=== PATIENT | male | born 1945 | race Caucasian/White ===

== ENCOUNTER 2017-12-06 17:11 | Inpatient (IN) | payer MEDICARE ==
[~2017-12-06] VITALS: Ht 165.1 cm; Wt 71.0 kg
[2017-12-06 18:30] LABS: BASOPHILS # (AUTO) 0.02 x10^3/uL (0-0.1); BASOPHILS % (AUTO) 0 % (0-1); EOSINOPHILS # (AUTO) 0.09 x10^3/uL (0-0.4); EOSINOPHILS % (AUTO) 1 % (1-7); LYMPHOCYTES # (AUTO) 0.54 x10^3/uL (1-3.4); LYMPHOCYTES % (AUTO) 5 % (22-44); MD NO; MEAN CORPUSCULAR HGB CONC 33.1 g/dL (33.2-36.2); MEAN CORPUSCULAR VOLUME 90.6 fL (81-97); MEAN PLATELET VOLUME 6.4 fL (7.4-10.4); MONOCYTES # (AUTO) 1.03 x10^3/uL (0.2-0.8); MONOCYTES % (AUTO) 9 % (2-9); NEUTROPHILS # (AUTO) 10.44 x10^3/uL (1.8-6.8); NEUTROPHILS % (AUTO) 86 % (42-75); PLATELET COUNT 388 x10^3/uL (130-400); RED BLOOD COUNT 5.14 x10^6/uL (4.38-5.82); RED CELL DISTRIBUTION WIDTH 15.3 % (9.4-14.8)
[2017-12-06] MEDS ORDERED: SODIUM CHLORIDE FLUSH 10ML SYR IVF ONE (18:30)
[2017-12-06] MEDS ORDERED: SODIUM CHLORIDE 0.9% 1,000ML IVBOLUS ONE ×2 (18:30→20:00)
[2017-12-06 18:41] LABS: ALBUMIN 3.2 g/dL (3.4-5.0); ANION GAP 6 mmol/L (5-15); CALCIUM 9.1 mg/dL (8.5-10.1); CHLORIDE 103 mmol/L (98-107)
[2017-12-06 18:49] LABS: ALANINE AMINOTRANSFERASE 31 U/L (12-78); ALKALINE PHOSPHATASE 164 U/L (45-117); BILIRUBIN,TOTAL 0.5 mg/dL (0.2-1.0); CREATININE 1.06 mg/dL (0.7-1.3); TOTAL PROTEIN 8.3 g/dL (6.4-8.2); TROPONIN I < 0.015 ng/mL (0.000-0.045)
[2017-12-06] MEDS ORDERED: PLEASE ENTER ALLERGIES MC SCH (18:49)
[2017-12-06 19:48] LABS: MICROSCOPIC INDICATED
[2017-12-06 19:53] LABS: CULTURE INDICATED? YES
[2017-12-06] MEDS ORDERED: POTASSIUM CHLORIDE 20 MEQ TAB.ER.PRT PO ONE ×2 (20:00→21:00)
[2017-12-06] MEDS ORDERED: POTASSIUM CHLORIDE 20 MEQ TAB.ER.PRT ONE (20:03)
[2017-12-06 20:48] VITALS: BP 120/75
[2017-12-06 20:49] VITALS: BP 120/79
[2017-12-06 20:51] VITALS: BP 111/70
[2017-12-06] MEDS ORDERED: ENALAPRILAT 1.25 MG/ML, 2ML IVPush PRN (21:00)
[2017-12-06] MEDS ORDERED: DOCUSATE 100 MG CAPSULE PO PRN (21:00)
[2017-12-06] MEDS ORDERED: hydrALAzine 20 MG/ML, 1ML IVPush PRN (21:00)
[2017-12-06] MEDS ORDERED: ONDANSETRON 2MG/ML, 2ML IVPush PRN (21:00)
[2017-12-06] MEDS ORDERED: ACETAMINOPHEN 325 MG TABLET PO PRN (21:00)
[2017-12-06] MEDS ORDERED: POLYETHYLENE GLYCOL 17 GM PACKET PO PRN (21:00)
[2017-12-06] MEDS ORDERED: CEFTRIAXONE PMX 2GM/50ML 50 ML IV SCH (21:00)
[2017-12-06] MEDS ORDERED: morphine SULFATE 10 MG/ML, 1ML IVPush PRN (21:00)
[2017-12-06] MEDS ORDERED: BISACODYL 10 MG SUPP PR PRN (21:00)
[2017-12-06 22:00] LABS: FREE T4 (FREE THYROXINE) 1.32 ng/dL (0.76-1.46); THYROID STIMULATING HORMONE 0.953 mIU/L (0.358-3.740)
[2017-12-06 22:04] LABS: HEMOGLOBIN A1C 6.5 % (4.2-6.3)
[2017-12-06] MEDS: NICOTINE 14MG/24 HR PATCH.TD24 TD SCH (22:04)
[2017-12-06] MEDS: HEPARIN 5,000 UNITS/ML, 1ML SQ SCH (22:05)
[2017-12-06] MEDS: SODIUM CHLORIDE 0.9% 1,000 ML IV SCH (22:05)
[2017-12-07] VITALS (9 sets, daily range): BP systolic 113–156; BP diastolic 61–92
[2017-12-07 00:32] LABS: TROPONIN I < 0.015 ng/mL (0.000-0.045)
[2017-12-07] MEDS: HEPARIN 5,000 UNITS/ML, 1ML SQ SCH ×3 (05:00→21:00)
[2017-12-07 06:09] LABS: BASOPHILS # (AUTO) 0.03 x10^3/uL (0-0.1); BASOPHILS % (AUTO) 0 % (0-1); EOSINOPHILS # (AUTO) 0.19 x10^3/uL (0-0.4); EOSINOPHILS % (AUTO) 2 % (1-7); LYMPHOCYTES # (AUTO) 0.89 x10^3/uL (1-3.4); LYMPHOCYTES % (AUTO) 10 % (22-44); MD NO; MEAN CORPUSCULAR HEMOGLOBIN 30.1 pg (27.5-34.5); MEAN CORPUSCULAR HGB CONC 33.6 g/dL (33.2-36.2); MEAN CORPUSCULAR VOLUME 89.6 fL (81-97); MEAN PLATELET VOLUME 6.4 fL (7.4-10.4); MONOCYTES # (AUTO) 1.07 x10^3/uL (0.2-0.8); MONOCYTES % (AUTO) 12 % (2-9); NEUTROPHILS # (AUTO) 6.59 x10^3/uL (1.8-6.8); NEUTROPHILS % (AUTO) 75 % (42-75); PLATELET COUNT 383 x10^3/uL (130-400); RED BLOOD COUNT 4.29 x10^6/uL (4.38-5.82); RED CELL DISTRIBUTION WIDTH 15.4 % (9.4-14.8)
[2017-12-07 06:18] LABS: TROPONIN I < 0.015 ng/mL (0.000-0.045)
[2017-12-07 06:22] LABS: ALANINE AMINOTRANSFERASE 24 U/L (12-78); ALBUMIN 2.7 g/dL (3.4-5.0); ANION GAP 8 mmol/L (5-15); CALCIUM 8.5 mg/dL (8.5-10.1); CHLORIDE 109 mmol/L (98-107); CHOLESTEROL, TOTAL 184 mg/dL (140-239); CREATININE 0.73 mg/dL (0.7-1.3)
[2017-12-07 06:24] LABS: ALKALINE PHOSPHATASE 131 U/L (45-117); BILIRUBIN,TOTAL 0.3 mg/dL (0.2-1.0); HDL CHOLESTEROL (DIRECT) 24 mg/dL (40-60); TOTAL PROTEIN 6.8 g/dL (6.4-8.2); TRIGLYCERIDES 155 mg/dL (50-200); VLDL CHOLESTEROL 31 mg/dL (0-25)
[2017-12-07 06:44] LABS: HDL CHOL % 13 % (26-37); LDL CHOLESTEROL,CALCULATED 129 mg/dL (54-169); LDL/HDL RATIO 5.4 (0.5-3.0)
[2017-12-07 06:45] LABS: CHOL/HDL RATIO 7.7
[2017-12-07] MEDS: SODIUM CHLORIDE 0.9% 1,000 ML IV SCH (08:00)
[2017-12-07] MEDS: OXYcodone IR 5MG TABLET PO PRN ×3 (08:56→21:40)
[2017-12-07] MEDS ORDERED: OMNIPAQUE 350 MG/ML, 75ML BOTTLE ONE (11:20)
[2017-12-07] MEDS ORDERED: KETOROLAC 30 MG/1 ML IVPush PRN (13:30)
[2017-12-07] MEDS ORDERED: CEFTRIAXONE 2 GM in DEXTROSE 5% 50 ML IV SCH (21:00)
[2017-12-07] MEDS: NICOTINE 14MG/24 HR PATCH.TD24 TD SCH (21:40)
[2017-12-08 02:37] VITALS: BP_SYST 123; BP_SYST 135; BP_DIAS 76; BP_DIAS 89
[2017-12-08 02:38] VITALS: BP 148/97
[2017-12-08] MEDS: HEPARIN 5,000 UNITS/ML, 1ML SQ SCH (05:00)
[2017-12-08 05:25] LABS: BASOPHILS # (AUTO) 0.03 x10^3/uL (0-0.1); BASOPHILS % (AUTO) 0 % (0-1); EOSINOPHILS # (AUTO) 0.31 x10^3/uL (0-0.4); EOSINOPHILS % (AUTO) 4 % (1-7); LYMPHOCYTES # (AUTO) 0.91 x10^3/uL (1-3.4); LYMPHOCYTES % (AUTO) 11 % (22-44); MD NO; MEAN CORPUSCULAR HEMOGLOBIN 29.9 pg (27.5-34.5); MEAN CORPUSCULAR HGB CONC 33.7 g/dL (33.2-36.2); MEAN CORPUSCULAR VOLUME 88.6 fL (81-97); MEAN PLATELET VOLUME 6.2 fL (7.4-10.4); MONOCYTES # (AUTO) 1.04 x10^3/uL (0.2-0.8); MONOCYTES % (AUTO) 13 % (2-9); NEUTROPHILS % (AUTO) 71 % (42-75); PLATELET COUNT 408 x10^3/uL (130-400); RED BLOOD COUNT 4.35 x10^6/uL (4.38-5.82); RED CELL DISTRIBUTION WIDTH 15.3 % (9.4-14.8)
[2017-12-08 05:36] LABS: CHLORIDE 106 mmol/L (98-107)
[2017-12-08 05:40] LABS: ANION GAP 7 mmol/L (5-15); CALCIUM 8.8 mg/dL (8.5-10.1); CREATININE 0.74 mg/dL (0.7-1.3)
[2017-12-08] MEDS: OXYcodone IR 5MG TABLET PO PRN ×2 (06:31→10:44)
[2017-12-08 07:41] VITALS: BP 134/78
[2017-12-08 08:43] VITALS: BP 104/68
[2017-12-08 08:44] VITALS: BP 102/71
[2017-12-08 08:45] VITALS: BP 116/75
== END 2017-12-08 11:40 | disposition left against medical advice (07) | DRG 872 ==
LOC: ED 19:44 → EDIP 20:08 → 4WST 20:40 → OBSVTOIN 20:52
PROVIDERS: ADMIT Internal Medicine; ATTEND Internal Medicine
DX: A41.9 Sepsis, unspecified organism (principal); E44.0 Moderate protein-calorie malnutrition; N39.0 Urinary tract infection, site not specified; E87.6 Hypokalemia; Z53.21 Procedure and treatment not carried out due to patient leaving prior to being seen by health care provider; F10.10 Alcohol abuse, uncomplicated; F17.210 Nicotine dependence, cigarettes, uncomplicated; R91.8 Other nonspecific abnormal finding of lung field; M79.604 Pain in right leg; Z85.72 Personal history of non-Hodgkin lymphomas; Z68.26 Body mass index [BMI] 26.0-26.9, adult
CPT/HCPCS: 36415; 71045; 71260; 80048; 80053; 80061; 81001; 83036; 83605; 83735; 84439; 84443; 84484; 85025; 85379; 87040; 87077; 87086; 87186; 93005; 93306; 93922; 96360; J0696; J1644; Q9967; G0378; J2270; J7030

== ENCOUNTER 2017-12-13 12:57 | Inpatient (IN) | payer MEDICARE ==
[~2017-12-13] VITALS: Ht 165.1 cm; Wt 69.5 kg
[2017-12-13] MEDS ORDERED: SODIUM CHLORIDE 0.9% 1,000 ML IV ONE (13:13)
[2017-12-13] MEDS ORDERED: SODIUM CHLORIDE FLUSH 10ML SYR IVF ONE (13:30)
[2017-12-13] MEDS ORDERED: SODIUM CHLORIDE 0.9% 1,000ML IVBOLUS ONE (13:30)
[2017-12-13 14:14] LABS: MEAN CORPUSCULAR HEMOGLOBIN 29.5 pg (27.5-34.5); MEAN CORPUSCULAR HGB CONC 32.8 g/dL (33.2-36.2); MEAN CORPUSCULAR VOLUME 89.8 fL (81-97); MEAN PLATELET VOLUME 6.3 fL (7.4-10.4); PLATELET COUNT 474 x10^3/uL (130-400); RED CELL DISTRIBUTION WIDTH 15.3 % (9.4-14.8)
[2017-12-13 14:15] LABS: INTERNATIONAL NORMALIZED RATIO 1.12 (0.93-1.1); PROTHROMBIN TIME 11.6 Seconds (9.6-11.5)
[2017-12-13 14:19] LABS: ALANINE AMINOTRANSFERASE 23 U/L (12-78); ALBUMIN 3.2 g/dL (3.4-5.0); ANION GAP 9 mmol/L (5-15); CALCIUM 9.2 mg/dL (8.5-10.1); CHLORIDE 105 mmol/L (98-107)
[2017-12-13 14:21] LABS: BASOPHILS # (AUTO) 0.04 x10^3/uL (0-0.1); BASOPHILS % (AUTO) 0 % (0-1); EOSINOPHILS # (AUTO) 0.08 x10^3/uL (0-0.4); EOSINOPHILS % (AUTO) 1 % (1-7); LYMPHOCYTES # (AUTO) 0.51 x10^3/uL (1-3.4); LYMPHOCYTES % (AUTO) 4 % (22-44); MD NO; MONOCYTES # (AUTO) 0.63 x10^3/uL (0.2-0.8); MONOCYTES % (AUTO) 5 % (2-9); NEUTROPHILS % (AUTO) 90 % (42-75)
[2017-12-13 14:22] LABS: ALKALINE PHOSPHATASE 144 U/L (45-117); BILIRUBIN,TOTAL 0.4 mg/dL (0.2-1.0); CREATININE 1.09 mg/dL (0.7-1.3); TOTAL PROTEIN 7.7 g/dL (6.4-8.2)
[2017-12-13 18:12] LABS: MICROSCOPIC INDICATED
[2017-12-13 18:13] LABS: CULTURE INDICATED? YES
[2017-12-13] MEDS ORDERED: SODIUM CHLORIDE FLUSH 10ML SYR IVF PRN (19:00)
[2017-12-13] MEDS ORDERED: ACETAMINOPHEN 325 MG TABLET PO PRN (19:30)
[2017-12-13] MEDS ORDERED: LABETALOL 5MG/ML, 20ML IVPush PRN (19:30)
[2017-12-13] MEDS ORDERED: DOCUSATE 100 MG CAPSULE PO PRN (19:30)
[2017-12-13 19:53] VITALS: BP 112/68
[2017-12-13] MEDS: HYDROcodone/APAP 5/325 TABLET PO PRN (21:21)
[2017-12-13] MEDS: NICOTINE 14MG/24 HR PATCH.TD24 TD SCH (21:21)
[2017-12-13] MEDS: CEFTRIAXONE PMX 1GM/50ML 50 ML IV SCH (21:22)
[2017-12-13] MEDS: ENOXAPARIN 40 MG/0.4 ML SQ SCH (21:26)
[2017-12-14] MEDS: HYDROcodone/APAP 5/325 TABLET PO PRN ×6 (00:21→23:09)
[2017-12-14] MEDS: TEMAZEPAM 15 MG CAPSULE PO PRN ×2 (00:21→23:47)
[2017-12-14 01:20] VITALS: BP 107/62
[2017-12-14 04:57] LABS: BASOPHILS # (AUTO) 0.04 x10^3/uL (0-0.1); BASOPHILS % (AUTO) 1 % (0-1); EOSINOPHILS # (AUTO) 0.26 x10^3/uL (0-0.4); EOSINOPHILS % (AUTO) 3 % (1-7); LYMPHOCYTES # (AUTO) 1.43 x10^3/uL (1-3.4); LYMPHOCYTES % (AUTO) 16 % (22-44); MD NO; MEAN CORPUSCULAR HGB CONC 33.5 g/dL (33.2-36.2); MEAN CORPUSCULAR VOLUME 89.6 fL (81-97); MEAN PLATELET VOLUME 6.3 fL (7.4-10.4); MONOCYTES # (AUTO) 0.85 x10^3/uL (0.2-0.8); MONOCYTES % (AUTO) 10 % (2-9); NEUTROPHILS # (AUTO) 6.14 x10^3/uL (1.8-6.8); NEUTROPHILS % (AUTO) 70 % (42-75); PLATELET COUNT 454 x10^3/uL (130-400); RED BLOOD COUNT 4.32 x10^6/uL (4.38-5.82); RED CELL DISTRIBUTION WIDTH 15.2 % (9.4-14.8)
[2017-12-14 05:04] LABS: ANION GAP 8 mmol/L (5-15); CALCIUM 8.9 mg/dL (8.5-10.1); CHLORIDE 106 mmol/L (98-107)
[2017-12-14 05:10] LABS: ALANINE AMINOTRANSFERASE 18 U/L (12-78); ALKALINE PHOSPHATASE 121 U/L (45-117); BILIRUBIN,TOTAL 0.3 mg/dL (0.2-1.0); CREATININE 0.82 mg/dL (0.7-1.3); TOTAL PROTEIN 6.8 g/dL (6.4-8.2)
[2017-12-14 09:00] VITALS: BP 132/82
[2017-12-14] MEDS: ONDANSETRON ODT 4 MG PO PRN ×3 (09:11→19:02)
[2017-12-14] MEDS ORDERED: OMNIPAQUE 350 MG/ML, 100ML BOTTLE ONE (11:28)
[2017-12-14] MEDS: SODIUM CHLORIDE 0.9% 1,000 ML IV SCH ×2 (12:16→18:11)
[2017-12-14] MEDS ORDERED: HEPARIN 5,000 UNITS/ML, 1ML IV ONE (13:00)
[2017-12-14] MEDS ORDERED: HEPARIN 5,000 UNITS/ML, 1ML IV PRN (13:00)
[2017-12-14] MEDS ORDERED: HEPARIN 25,000 UNITS/500ML PMX 500 ML IV PRN (13:00)
[2017-12-14 20:52] VITALS: BP 138/77
[2017-12-14] MEDS: ENOXAPARIN 40 MG/0.4 ML SQ SCH (21:05)
[2017-12-14] MEDS: CEFTRIAXONE PMX 1GM/50ML 50 ML IV SCH (21:06)
[2017-12-14] MEDS: NICOTINE 14MG/24 HR PATCH.TD24 TD SCH (21:07)
[2017-12-15 04:20] VITALS: BP 158/84
[2017-12-15] MEDS: HYDROcodone/APAP 5/325 TABLET PO PRN ×4 (04:25→22:07)
[2017-12-15 04:28] LABS: BASOPHILS # (AUTO) 0.03 x10^3/uL (0-0.1); BASOPHILS % (AUTO) 0 % (0-1); EOSINOPHILS # (AUTO) 0.15 x10^3/uL (0-0.4); EOSINOPHILS % (AUTO) 2 % (1-7); LYMPHOCYTES # (AUTO) 1.02 x10^3/uL (1-3.4); LYMPHOCYTES % (AUTO) 10 % (22-44); MD NO; MEAN CORPUSCULAR HGB CONC 33.4 g/dL (33.2-36.2); MEAN CORPUSCULAR VOLUME 89.8 fL (81-97); MEAN PLATELET VOLUME 6.3 fL (7.4-10.4); MONOCYTES % (AUTO) 6 % (2-9); NEUTROPHILS # (AUTO) 7.93 x10^3/uL (1.8-6.8); NEUTROPHILS % (AUTO) 82 % (42-75); PLATELET COUNT 441 x10^3/uL (130-400); RED BLOOD COUNT 4.61 x10^6/uL (4.38-5.82); RED CELL DISTRIBUTION WIDTH 15.9 % (9.4-14.8)
[2017-12-15 04:37] LABS: ANION GAP 7 mmol/L (5-15); CALCIUM 8.9 mg/dL (8.5-10.1); CHLORIDE 104 mmol/L (98-107); CREATININE 0.78 mg/dL (0.7-1.3)
[2017-12-15] MEDS: SODIUM CHLORIDE 0.9% 1,000 ML IV SCH (06:32)
[2017-12-15] MEDS ORDERED: MORPHINE SULFATE 4 MG/ML, 1ML IVPush PRN (08:00)
[2017-12-15 08:07] VITALS: BP 134/91
[2017-12-15] MEDS: ONDANSETRON 2MG/ML, 2ML IVPush PRN (08:33)
[2017-12-15] MEDS: MORPHINE SULFATE 4 MG/ML, 1ML IVPush PRN ×5 (08:33→23:38)
[2017-12-15] MEDS: NICOTINE 14MG/24 HR PATCH.TD24 TD SCH (20:33)
[2017-12-15] MEDS: ENOXAPARIN 40 MG/0.4 ML SQ SCH (20:34)
[2017-12-15] MEDS: TEMAZEPAM 15 MG CAPSULE PO PRN (22:09)
[2017-12-16] MEDS: MORPHINE SULFATE 4 MG/ML, 1ML IVPush PRN ×2 (03:31→07:25)
[2017-12-16] MEDS: HYDROcodone/APAP 5/325 TABLET PO PRN (04:40)
[2017-12-16] MEDS: LORazepam 2 MG/ML, 1ML IVPush PRN ×2 (09:44→15:28)
[2017-12-16] MEDS: ONDANSETRON 2MG/ML, 2ML IVPush PRN (15:28)
[2017-12-16] MEDS: NICOTINE 14MG/24 HR PATCH.TD24 TD SCH (20:35)
[2017-12-17] MEDS: LORazepam 2 MG/ML, 1ML IVPush PRN (01:59)
[2017-12-17] MEDS ORDERED: LORazepam 2 MG/ML, 1ML IVPush PRN (15:30)
[2017-12-17] MEDS: NICOTINE 14MG/24 HR PATCH.TD24 TD SCH (20:03)
== END 2017-12-18 15:20 | disposition expired | DRG 840 ==
LOC: ED 16:54 → EDIP 18:48 → 3NW 19:30
PROVIDERS: ADMIT Internal Medicine; ATTEND Hospitalist
DX: C85.90 Non-Hodgkin lymphoma, unspecified, unspecified site (principal); E43 Unspecified severe protein-calorie malnutrition; E87.2 Acidosis; I82.411 Acute embolism and thrombosis of right femoral vein; C78.00 Secondary malignant neoplasm of unspecified lung; N13.30 Unspecified hydronephrosis; R64 Cachexia; E86.0 Dehydration; I82.491 Acute embolism and thrombosis of other specified deep vein of right lower extremity; I87.1 Compression of vein; D64.9 Anemia, unspecified; N30.90 Cystitis, unspecified without hematuria; Z51.5 Encounter for palliative care; F17.210 Nicotine dependence, cigarettes, uncomplicated; Z59.0 Homelessness; Z66 Do not resuscitate; Z86.718 Personal history of other venous thrombosis and embolism; Z92.21 Personal history of antineoplastic chemotherapy; Z68.25 Body mass index [BMI] 25.0-25.9, adult
CPT/HCPCS: 36415; 71046; 74177; 80048; 80053; 81001; 82040; 83605; 83735; 84100; 85025; 85520; 85610; 85730; 87040; 87086; 93005; 96360; 96361; J0696; J1644; J1650; J2270; J2405; Q0162; Q9967; J2060; J7030